=== PATIENT | female | born 1985 | race Caucasian/White ===

== ENCOUNTER 2016-10-21 18:51 | Emergency (ER) | payer SELFPAY ==
--- NOTE | 2016-10-21 20:30 | UC ---
UC General HPI - HPI Summary HPI Summary: complaint of bug bite on her left knee that she noticed 4 days ago become swollen and red and the red area keeps getting bigger denies fever no difficulty with ambulating taking ibuprofen for pain with some relief UTD on tetanus 2011 - History of Current Complaint Stated Complaint: POSS BUG BITE-LT KNEE REDNESS,SWELLING Time Seen by Provider: 10/21/16 20:24 Hx Obtained From: Patient - Allergy/Home Medications Allergies/Adverse Reactions: Allergies Allergy/AdvReac Type Severity Reaction Status Date / Time Levofloxacin [From Levaquin] Allergy Severe Hives Verified 10/21/16 21:11 Lactose Intolerance (GI) Allergy GI Upset Verified 10/21/16 21:11 Tomato Allergy Anaphylatic Verified 10/21/16 21:11 Shock PMH/Surg Hx/FS Hx/Imm Hx Previously Healthy: Yes Endocrine History Of: Denies: Diabetes, Thyroid Disease Cardiovascular History Of: Denies: Cardiac Disorders, Hypertension Respiratory History Of: Reports: Asthma Denies: COPD GI/ History Of: Denies: Ulcer - Surgical History Surgical History: Yes Surgery Procedure, Year, and Place: T&A, TUBES IN EARS, KNEE SURGERY, hysteroscopy - Family History Known Family History: Negative: Cardiac Disease, Hypertension, Diabetes - Social History Occupation: Employed Full-time Alcohol Use: Rare Substance Use Type: None Smoking Status (MU): Never Smoked Tobacco Review of Systems Constitutional: Negative Skin: Rash Eyes: Negative ENT: Negative Respiratory: Negative Cardiovascular: Negative Gastrointestinal: Negative Genitourinary: Negative Motor: Negative Neurovascular: Negative Musculoskeletal: Negative Neurological: Negative Psychological: Negative All Other Systems Reviewed And Are Negative: Yes Physical Exam Triage Information Reviewed: Yes Appearance: No Pain Distress, Well-Nourished Vital Signs Reviewed: Yes Eyes: Positive: Conjunctiva Clear ENT: Positive: Pharynx normal, TMs normal Neck: Positive: No Lymphadenopathy Respiratory: Positive: Lungs clear, Normal breath sounds, No respiratory distress, No accessory muscle use Cardiovascular: Positive: RRR, No Murmur, Pulses Normal Abdomen Description: Positive: Nontender, Soft Bowel Sounds: Positive: Present Musculoskeletal: Positive: No Edema Neurological Exam: Normal Psychological Exam: Normal Skin: Positive: Other - left leg with [id number] area of erythema surrounding insect bite Course/Dx - Differential Dx - Multi-Symptom Differential Diagnoses: Other - cellulitis Provider Diagnoses: cellulitis Discharge - Discharge Plan Condition: Stable Disposition: HOME Prescriptions: Sulfamethox/Trimethoprim DS* [Bactrim DS 800/160 TAB*] 1 tab PO BID #14 tab Patient Education Materials: Cellulitis (ED) Referrals: No Primary Care Phys,NOPCP [Primary Care Provider] - [facility] [Outside] Additional Instructions: CELLULITIS What is Cellulitis? Cellulitis is a bacterial infection of the skin and, sometimes, of the tissues beneath the skin. The skin normally has many types of bacteria on it, but intact skin is an effective barrier that keeps bacteria from entering and growing within the body. When there is a break in the skin, bacteria can enter the body and grow there, causing infection. The infection usually affects outer layers of the skin first, and then spreads deeper into body tissues. Cellulitis can affect any area of the body covered by skin, but it is most common on the face or lower part of the legs. Symptoms Might Include: Skin redness that increases in size as the infection spreads Tight, glossy, "stretched" appearance of the skin Pain or tenderness of the area The affected area may be warm or hot to the touch A thin red line (along a vein) from the cellulitis toward the heart Fever Chills, shaking Muscle aches pains Joint stiffness because of swelling around a joint Treatment Recommendations: The healthcare provider may have prescribed an antibiotic medicine. The medicine should be taken until it is completely gone, even if you are feeling better. If you stop taking the medicine early, the infection may not be completely gone, and the medication may not work the next time. If the infection is on your arm or leg, keep it elevated. You may use warm, wet compresses to relieve the pain and help healing. Soak a clean cloth in warm water, wring it out a little, and apply it to the affected site. Leave the soak in place for 15 minutes and repeat often throughout the day. Rest until the fever is gone and the pain and redness have lessened. You may take ibuprofen (Motrin, Advil), or acetaminophen (Tylenol) for pain. These will help ease some of the symptoms but will not cure the infection. Call Your Doctor or Return Here IF: Your fever does not go down with treatment, or it increases to more than 101 F. You are not starting to get better with the treatment within 24 to 36 hours. You have increasing pain, swelling, or chills. You feel drowsy and lethargic, or you have vomiting or diarrhea. You find the redness is spreading or there are red streaks coming from the infected area. The joint or bone under the infected skin becomes painful after the skin has started to heal. You have any new symptoms that worry you.
[2016-10-21 21:11] VITALS: BP 116/57
[2016-10-21] MEDS ORDERED: Sulfamethox/Trimethoprim DS 800/160* TAB PO ONE (21:13)
== END 2016-10-21 21:19 | disposition home or self-care (01) ==
LOC: UCCORT 18:51
DX: L03.116 Cellulitis of left lower limb (principal); J45.909 Unspecified asthma, uncomplicated
CPT/HCPCS: 99212; A9270-GY; G0463

== ENCOUNTER 2017-06-05 10:50 | Emergency (ER) | payer SELFPAY ==
[2017-06-05 11:16] VITALS: BP 130/92
[2017-06-05] MEDS ORDERED: HYDROcodone/ACETAMIN 5-325 MG* 1 TAB PO ONE (11:51)
--- NOTE | 2017-06-05 11:58 | UC ---
UC Dental HPI - HPI Summary HPI Summary: 31 yo female c/o progressive worse dental pain over the last 3 days. No fever. No n/v. Hx dental filling just under a year ago, but it broke off a few weeks later. Has been trying to see a dentist, but she reports that they told her that the infection has to be gone before they will see her. No rash. Able to take po. - History of Current Complaint Chief Complaint: UCDentalProblem Stated Complaint: INFECTED TOOTH Time Seen by Provider: 06/05/17 11:19 Hx Obtained From: Patient Hx Last Menstrual Period: unknown - Allergies/Home Medications Allergies/Adverse Reactions: Allergies Allergy/AdvReac Type Severity Reaction Status Date / Time Levofloxacin [From Levaquin] Allergy Severe Hives Verified 06/05/17 11:17 Lactose Intolerance (GI) Allergy GI Upset Verified 06/05/17 11:17 Tomato Allergy Anaphylatic Verified 06/05/17 11:17 Shock Home Medications: Home Medications Aleve 220 Mg 440 mg PO DAILY PRN 06/05/17 [History Confirmed 06/05/17] Ibuprofen TAB* [Motrin TAB* 800 MG] 800 mg PO Q6H PRN 06/05/17 [History Confirmed 06/05/17] PMH/Surg Hx/FS Hx/Imm Hx Previously Healthy: Yes - see hpi - Surgical History Surgical History: Yes Surgery Procedure, Year, and Place: T&A, TUBES IN EARS, KNEE SURGERY, hysteroscopy - Family History Known Family History: Negative: Cardiac Disease, Hypertension, Diabetes - Social History Alcohol Use: Rare Substance Use Type: None Smoking Status (MU): Never Smoked Tobacco - Immunization History Most Recent Influenza Vaccination: none Review of Systems Constitutional: Negative Skin: Negative Eyes: Negative ENT: Other - see hpi Respiratory: Negative Cardiovascular: Negative Gastrointestinal: Negative Genitourinary: Negative Motor: Negative Neurovascular: Negative Musculoskeletal: Negative Neurological: Negative Psychological: Negative Is Patient Immunocompromised?: No All Other Systems Reviewed And Are Negative: Yes Physical Exam Triage Information Reviewed: Yes Appearance: Well-Nourished - looks tired. Nontoxic appearance. Vital Signs: Initial Vital Signs Temp 98.8 F 06/05/17 11:10 Pulse 89 06/05/17 11:10 Resp 24 06/05/17 11:10 BP 130/92 06/05/17 11:10 Eye Exam: Normal Dental Exam: Other - R lower 2nd premolar broken, + swelling. Tongue not elevated. Post pharynx airway intact. No stridor. Mild trismus R 2/2 pain. Dental: Positive: Percussion Tenderness @, Gross Decay/Caries @ Neck: Positive: Supple, Nontender, No Lymphadenopathy Respiratory Exam: Normal Respiratory: Positive: Chest non-tender, Lungs clear, Normal breath sounds, No respiratory distress Cardiovascular Exam: Normal Cardiovascular: Positive: RRR, No Murmur, Brisk Capillary Refill Abdominal Exam: Normal Musculoskeletal Exam: Normal Neurological Exam: Normal - grossly nonfocal Psychological Exam: Normal Skin Exam: Normal - no visible or reported rash. Nondiaphoretic. Dental Complaint Course/Dx - Course Course Of Treatment: No new problems in CCC. Denies hx addiction, will send home with [place] #3 . F/u Dentist as soon as possible. Questions as posed answered to the bets of my sav. - Differential Dx/Diagnosis Provider Diagnoses: Odontalgia. Dental infection. Broken gordy tooth Discharge - Discharge Plan Condition: Stable Disposition: HOME Prescriptions: Amoxicillin/Clavulanate TAB* [Augmentin TAB 875*] 875 mg PO BID #28 tab Fluconazole 150 MG (NF) [Diflucan 150 mg (NF)] 150 mg PO DAILY #2 tab Ibuprofen TAB* [Motrin TAB* 600 MG] 600 mg PO Q8H PRN #30 tab PRN Reason: Pain Patient Education Materials: Dental Abscess (ED), Toothache (ED) Referrals: No Primary Care Phys,NOPCP [Primary Care Provider] - Additional Instructions: Follow up with your dentist as soon as possible, recommend in 1-2 week. Seek medical attention for worse or new problems. Probiotic and / or yogurt while taking antibiotics.
== END 2017-06-05 12:09 | disposition home or self-care (01) ==
LOC: UCCORT 10:50
DX: K08.89 Other specified disorders of teeth and supporting structures (principal); K04.7 Periapical abscess without sinus; S02.5XXA Fracture of tooth (traumatic), initial encounter for closed fracture; X58.XXXA Exposure to other specified factors, initial encounter; Y92.9 Unspecified place or not applicable
CPT/HCPCS: 99213; G0463

== ENCOUNTER 2018-08-12 14:56 | Emergency (ER) | payer BC ==
[2018-08-12 16:12] VITALS: BP 121/68
--- NOTE | 2018-08-12 16:26 | UC ---
Respiratory Complaint HPI - HPI Summary HPI Summary: The patient is a 32-year-old female that is been ill for 6 days. She has had a productive cough (brown sputum) and she has had right lateral chest pain. She was seen by her physician on 08/10. She was started on a Pro Air inhaler as well as Augmentin. She states the Pro Air does not seem to be helping her. She has had no nausea or vomiting. She does feel short winded. She has a long history of requiring neb treatments with respiratory infections. She was admitted for 3 weeks years ago for a pneumococcal pneumonia. Today she started developing some mild substernal chest pressure. She was sent here today by her primary care physician for further evaluation. - History of Current Complaint Chief Complaint: UCRespiratory Stated Complaint: SOB, RIB PAIN Time Seen by Provider: 08/12/18 16:08 Hx Obtained From: Patient Hx Last Menstrual Period: 08/12/18 Onset/Duration: Gradual Onset, Lasting Days Timing: Constant Pain Intensity: 5 Pain Scale Used: 0-10 Numeric Character: Cough: Productive Aggravating Factors: Deep Breaths Alleviating Factors: Nothing Associated Signs And Symptoms: Positive: Dyspnea - Allergies/Home Medications Allergies/Adverse Reactions: Allergies Allergy/AdvReac Type Severity Reaction Status Date / Time levofloxacin [From Levaquin] Allergy Severe Hives Verified 08/12/18 15:52 Home Medications: Home Medications Albuterol HFA INHALER* [Ventolin HFA Inhaler*] 1 puff Q4HR PRN 08/12/18 [ History Confirmed 08/12/18] Amoxicillin/Clavulanate TAB* [Augmentin TAB 875*] 1 tab BID 08/12/18 [History Confirmed 08/12/18] PMH/Surg Hx/FS Hx/Imm Hx - Surgical History Surgical History: Yes Surgery Procedure, Year, and Place: T&A, TUBES IN EARS, KNEE SURGERY, hysteroscopy - Family History Known Family History: Negative: Cardiac Disease, Hypertension, Diabetes - Social History Alcohol Use: Rare Substance Use Type: None Smoking Status (MU): Never Smoked Tobacco - Immunization History Most Recent Influenza Vaccination: none Review of Systems All Other Systems Reviewed And Are Negative: Yes Constitutional: Positive: Fever, Chills, Fatigue Skin: Positive: Negative Eyes: Positive: Negative ENT: Positive: Ear Ache Respiratory: Positive: Shortness Of Breath, Cough Cardiovascular: Positive: Chest Pain Gastrointestinal: Positive: Negative Genitourinary: Positive: Negative Motor: Positive: Negative Neurovascular: Positive: Negative Musculoskeletal: Positive: Negative Neurological: Positive: Negative Psychological: Positive: Negative Is Patient Immunocompromised?: No Physical Exam Triage Information Reviewed: Yes Appearance: Well-Appearing, No Pain Distress, Well-Nourished Vital Signs: Initial Vital Signs Temp 98 F 08/12/18 15:54 Pulse 85 08/12/18 15:54 Resp 26 08/12/18 15:54 BP 121/68 08/12/18 15:54 Pulse Ox 97 08/12/18 15:54 Vital Signs Reviewed: Yes Eyes: Positive: Conjunctiva Clear ENT: Positive: Hearing grossly normal. Negative: Pharyngeal erythema, Nasal congestion, Nasal drainage, Trismus, Hoarse voice, Uvula midline Neck: Positive: Supple, Nontender, No Lymphadenopathy Respiratory: Positive: Chest non-tender, Decreased breath sounds - right base Cardiovascular: Positive: RRR, No Murmur, Pulses Normal Musculoskeletal: Positive: Strength Intact, ROM Intact Neurological: Positive: Alert Psychological Exam: Normal Skin Exam: Normal UC Diagnostic Evaluation - Laboratory O2 Sat by Pulse Oximetry: 97 - normal/not hypoxic - Radiology Radiology Interpretation Completed By: Radiologist Summary of Radiographic Findings: NAD - EKG Cardiac Rate: NL Cardiac Rhythm: Sinus: Normal ST Segment: Normal EKG Comparison: No Significant Change Re-Evaluation - Re-Evaluation First Eval Re-Evaluation Time: 17:03 Change: Improved - better air movement/less pain Respiratory Course/Dx - Differential Dx/Diagnosis Provider Diagnosis: Pleurisy, Bronchitis with bronchospasm Discharge - Sign-Out/Discharge Documenting (check all that apply): Patient Departure All imaging exams completed and their final reports reviewed: Yes - Discharge Plan Condition: Improved Disposition: HOME Prescriptions: predniSONE [Deltasone 20 MG TAB] 40 mg PO DAILY #10 tab Patient Education Materials: Pleurisy (ED), Acute Bronchitis (ED) Forms: *Work Release Referrals: Myranda Portillo MD [Primary Care Provider] - Additional Instructions: recheck in 4 days if not better recheck sooner if symptoms worsen - Billing Disposition and Condition Condition: IMPROVED Disposition: Home
[2018-08-12] MEDS: Albuterol 2.5 MG/3 ML NEB.SOL* (0.083%) INH ONE (16:33)
[2018-08-12] MEDS: Ipratropium 0.5MG/2.5ML NEB* 0.5 MG/2.5 ML NEB.SOLN INH ONE (16:33)
[2018-08-12] MEDS: predniSONE TAB* 20 MG PO ONE (17:05)
== END 2018-08-12 17:15 | disposition home or self-care (01) ==
LOC: UCCORT 14:56
DX: J40 Bronchitis, not specified as acute or chronic (principal); J98.01 Acute bronchospasm; R09.1 Pleurisy; Z88.1 Allergy status to other antibiotic agents
CPT/HCPCS: 71046; 93005; 99212; G0463; J7512